=== PATIENT | male | born 1955 | race Caucasian/White ===

== ENCOUNTER 2024-05-15 08:07 | Day surgery (SDC) | payer MEDICARE, OTHER, SELFPAY ==
--- OUTSIDE RECORDS SUMMARY | 2024-05-08 14:07 | XMS_ITS | Patient Health Record ---
Author Organization [facility] Address [address] [place] [id number] Care Team Providers Care Mechanical Service Specialist Name Role Phone Baljit Paulson MD Primary Care Provider Alton Franco [phone] ALLERGIES Allergen (clinical drug ingredient) Drug/Non Drug Allergy documented on EMR Reaction Allergy Type Onset Date Status Sulfa Unknown Drug Allergy Active Penicillin Unknown Drug Allergy Active REASON FOR REFERRAL No Information MEDICATIONS Medication SIG (Take, Route, Frequency, Duration) Notes Start Date End Date Status Vitamin B Complex - as directed Orally Active Vitamin D 25 MCG (1000 UT) with calcium as directed Orally Once a day Active Ibuprofen 800 MG Oral for 90 A ctive clonazePAM 1 MG 1 tablet Oral QHS Active Simvastatin 40 MG TAKE 1 TABLET BY MARISABEL TH EVERY DAY IN THE EVENING Oral for 90 Active IMMUNIZATIONS Vaccine Route Administration Date Status Comme nts Influenza Unknown 01/23/2024 Refused Influenza Unknown 07/25/2018 Others SOCIAL HISTORY Sex Assigned At : Social History Observation Description Sex Assigned At Unknown PROBLEMS Problem Type ICD Code Onset Dates Problem Status W/U Status Risk SNOMED Code Notes Problem Encounter for screening for malignant neoplasm of colon (Z12.11) Active confirmed 134037064 Problem salvage determiner (current) use of non-steroidal anti-inflammator ies (NSAID) (Z79.1) Active confirmed salvage determiner curre nt use of non-steroidal anti-inflammatory drug (692208774747512) Problem Preprocedural examination (Z01.818) Active confirmed 977134200718529 Problem Hx of adenomatous colonic polyps (Z86.010) Active confirmed 668944815 VITAL SIGNS Blood pressure diastolic 00 mm Hg 01/23/2024 Height 72.5 in 01/23/2024 Blood pressure systolic 00 mm Hg 01/23/2024 Weight 286 lbs 01/23/2024 BMI 38.25 kg/m2 01/23/2024 Encounters Encounter Location Date Provider Diagnosis [facility] [address] [place] [address] 01/23/2024 Alton Garcia Hx of adenomatous colonic polyps Z86.010 ; alf (current) use of non-steroidal anti-inflammatories (NSAID) Z79.1 ; Encounter for screening for malignant neoplasm of colon Z12.11 and Preprocedural examination Z01.818 ASSESSMENTS Encounter Date Diagnosis Assessment Notes Treatment Notes Treatment Clinical Notes 01/23/2024 salvage determiner (current) use of non-steroidal anti-inflammatories (NSAID) (ICD-10 - Z79.1) 01/23/2024 Hx of adenomatous colonic polyps (ICD-10 - Z86.010) Stop your ibuprofen for one week before the colonoscopy 01/23/2024 Encounter for screening for malignant neoplasm of colon (ICD-10 - Z12.11) 01/23/2024 Preprocedural examination (ICD-10 - Z01.818) PLAN OF TREATMENT Future Test Test Name Order Date COLONOSCOPY 03/29/2013 COLONOSCOPY 07/25/2018 COLONOSCOPY 01/23/2024 Next Appt Details Provider Name:Alton Gregg Garcia , 05/15/2024 10:40:00 AM, [address] [place] [address] , [place], [place], [phone], Insurance Providers Payer Name Payer Address Payer Phone Subscriber Number Group Number Insured Name Patient Relationship to Insured Coverage Start Date Coverage End Date MEDICARE OF [place] [address] [place] [address] [id number] MIN MARTIN Self - patient is the insured [facility] [address] [place] [address] [id number] MIN MARTIN Self - patient is the insured MEDICAL (GENERAL) HISTORY Medical History History ICD Code Tubular adenoma removed in 2002 at [facility] Colonoscopy 01-27-2009--2 sm all tubular adenomas removed; colonoscopy in 04/2013 with only a hyperplastic polyp Denies RI,DM,CVArenal disease Cold-induced asthma Hyperlipidemia 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
--- OUTSIDE RECORDS SUMMARY | 2024-05-08 14:07 | XMS_ITS ---
Author Organization [facility] Address [address] [place] [address] Care Team Providers Care Business Case Analyst Name Role Phone Baljit Paulson MD Primary Care Provider Alton Franco Unavailable [phone] ALLERGIES Allergen (clinical drug ingredient) Drug/Non Drug Allergy documented on EMR Reaction Allergy Type Onset Date Status Sulfa Unknown Drug Allergy Active Penicillin Unknown Drug Allergy Active REASON FOR VISIT Patient presents today for a recall colonoscopy MEDICATIONS Medication SIG (Take, Route, Frequency, Duration) Notes Start Date End Date Status Vitamin B Complex - as directed Orally Active Ibuprofen 800 MG Oral for 90 A ctive clonazePAM 1 MG 1 tablet Oral QHS Active Simvastatin 40 MG TAKE 1 TABLET BY MARISABEL TH EVERY DAY IN THE EVENING Oral for 90 Active Vitamin D 25 MCG (1000 UT) with calcium as directed Orally Once a day Active IMMUNIZATIONS Vaccine Route Administration Date Status Comme nts Influenza Unknown 01/23/2024 Refused PROBLEMS Problem Type ICD Code Onset Dates Problem Status W/U Status Risk SNOMED Code Notes Problem intermediate (current) use of non-steroid al anti-inflam matories (NSAID) (Z79.1) Active confirmed exterminator helper termite current use of non-steroidal anti-inflamma tory drug ([id number]) VITAL SIGNS BMI 38.25 kg/m2 01/23/2024 Blood pressure systolic 00 mm Hg 01/23/20 24 Blood pressure diastolic 00 mm Hg 024 Height 72.5 in 01/23/2024 Weight 286 lbs 01/23/2024 Encounters Encounter Location Date Provider Diagnosis [facility] [address] [place] [address] 01/23/2024 Alton Garcia Hx of adenomatous colonic polyps Z86.010 ; intermediate (current) use of non-steroidal anti-inflammatories (NSAID) Z79.1 ; Encounter for screening for malignant neoplasm of colon Z12.11 and Preprocedural examination Z01.818 ASSESSMENTS Encounter Date Diagnosis Assessment Notes Treatment Notes Treatment Clinical Notes 01/23/2024 Hx of adenomatous colonic polyps (ICD-10 - Z86.010) Stop your ibuprofen for one week before the colonoscopy 01/23/2024 exterminator helper termite (current) use of non-steroidal anti-inflammatories (NSAID) (ICD-10 - Z79.1) 01/23/2024 Encounter for screening for malignant neoplasm of colon (ICD-10 - Z12.11) 01/23/2024 Preprocedural examination (ICD-10 - Z01.818) PLAN OF TREATMENT Treatment Notes Assessment Notes Hx of adenomatous colonic polyps Stop yo ur ibuprofen for one week before the colonoscopy Future Test Test Name Order Date COLONOSCOPY 01/23/2024 Next Appt Details Follow Up: prn, Reason: Provider Name:Alton Garcia , 05/15/2024 10:40:00 AM, [address] [place] [address] , [place], [place], [phone], Progress Notes * Examination Category Sub-Category Detail Notes General Examination GENERAL APPEARANCE: pleasant , well nourished, well developed, in no acute distress EYES: sclera non-icteric NECK/THYROID: no cervical lymphade nopathy, neck supple HEART: S1, S2 normal LUNGS: clear to auscultatio n bilaterally ABDOMEN: normal bowel sounds, no guarding or rigidity, no hepatosplenomegaly, no masses palpable, soft, nontender, nondistended. NEUROLOGIC: alert and oriented SKIN: nonjaundiced, no spi bakari angiomata. EXTREMITIES: no edema ORAL CAVITY: mucosa moist
[2024-05-13 14:42] VITALS: BMI 38.3
--- NOTE | 2024-05-14 08:44 | P.CONAN_ITS ---
Documented by User: Darlene Hart NP 05/14/24 08:44 HPI - Anesthesia Eval Consult details Narrative: 68yo M for Colonoscopy [facility] Past Medical History Medical History Guillain-Boston syndrome Hyperlipidemia Asthma Surgical History Surgical History Hx of knee surgery H/O colonoscopy Social History Social History Patient Tobacco Use Status: Never used Tobacco Use of substances other than those prescribed or required for medical reasons: No Are you DNR?: No Advance Directives: No Advance Directives Information Provided: Yes Meds Allergies Allergy/AdvReac Type Severity Reaction Status Date / Time Penicillins [PENICILLINS] Allergy Intermediate RASH Verified 05/15/24 09:13 Sulfa (Sulfonamide Allergy Intermediate RASH Verified 05/15/24 09:13 Antibiotics) [SULFA (SULFONAMIDE ANTIBIOTICS)] Home Medications ?Medication ?Instructions ?Recorded ?Confirmed ?Last Taken ?Type cholecalciferol (vitamin D3) 25 25 mcg PO DAILY 05/13/24 05/15/24 Unknown History mcg (1,000 unit) tablet (Vitamin D3) clonazepam 1 mg tablet 1 mg PO TID 05/13/24 05/15/24 Unknown History ibuprofen 800 mg tablet 800 mg PO Q8H PRN Pain 05/13/24 05/15/24 Unknown History simvastatin 40 mg tablet 40 mg PO QPM 05/13/24 05/15/24 Unknown History vitamin B complex 1 tab PO DAILY 05/13/24 05/15/24 Unknown History Exam Height,Weight and Vital Signs: Height 6 ft 0.5 in Weight 129.727 kg Assessment and Plan Assessment Anesthesia Assessment: Chart Reviewed Documented by User: Spring Phipps MD 05/15/24 10:01 [facility] Past Medical History Medical History Guillain-Boston syndrome Hyperlipidemia Asthma Family History Family history of problems with anesthesia: No Surgical History Surgical History Hx of knee surgery H/O colonoscopy History of Problems with Anesthesia: No Social History Social History Patient Tobacco Use Status: Never used Tobacco Use of substances other than those prescribed or required for medical reasons: No Are you DNR?: No Advance Directives: No Advance Directives Information Provided: Yes Meds Allergies Allergy/AdvReac Type Severity Reaction Status Date / Time Penicillins [PENICILLINS] Allergy Intermediate RASH Verified 05/15/24 09:13 Sulfa (Sulfonamide Allergy Intermediate RASH Verified 05/15/24 09:13 Antibiotics) [SULFA (SULFONAMIDE ANTIBIOTICS)] Home Medications ?Medication ?Instructions ?Recorded ?Confirmed ?Last Taken ?Type cholecalciferol (vitamin D3) 25 25 mcg PO DAILY 05/13/24 05/15/24 Unknown History mcg (1,000 unit) tablet (Vitamin D3) clonazepam 1 mg tablet 1 mg PO TID 05/13/24 05/15/24 Unknown History ibuprofen 800 mg tablet 800 mg PO Q8H PRN Pain 05/13/24 05/15/24 Unknown History simvastatin 40 mg tablet 40 mg PO QPM 05/13/24 05/15/24 Unknown History vitamin B complex 1 tab PO DAILY 05/13/24 05/15/24 Unknown History Exam Airway Mallampati Class: II TM Dist: >3cm Neck ROM: Full Heart: rrr Lungs: cta Assessment and Plan Assessment Anesthesia Assessment: Anesthesia Plan Discussed Final Anesthetic Review Family History of Problems with Anesthesia: No History of Problems with Anesthesia: No NPO: Yes ASA Class: II Final Preanesthetic Review: No Changes in Pt Med Stat, Meds/Allgs Chart Reviewed, Consent Obtained/Reviewed and Anes Risks/Benef Reviewed Patient Risk: Low Procedure Risk: Low Anesthetic Plan Anesthetic Plan: MAC: Disposition: Standard PACU
[2024-05-15 09:29] VITALS: BP 152/94; PULSE 70; RESP 16; TEMP 36.4; O2SAT 96; BMI 37.1
[2024-05-15] MEDS: Lactated Ringers 1,000 ML 100 ML IVCONT (09:40)
--- NOTE | 2024-05-15 11:07 | P.BOP_ITS ---
Brief Operative Note Date of Service: 05/15/24 Pre-op diagnosis: Screening Post-op diagnosis: other (Diverticulosis) Procedure: Colonoscopy to the cecum Surgeon: Alton Garcia MD Anesthesia: MAC Was an Joint Terminal Attack Controller used for this Procedure?: No Estimated blood loss (mL): 0 Pathology: none sent Condition: stable Disposition: PACU
[2024-05-15 11:08] VITALS: BP 123/76; PULSE 66; RESP 16; TEMP 36.1; O2SAT 97
--- NOTE | 2024-05-15 11:22 | OP_ITS ---
DATE OF SERVICE: 05/15/2024 SURGEON: Alton Garcia MD INDICATIONS: The patient presents for evaluation of colorectal cancer screening and personal history of tubular adenoma of the colon. Full consent has been obtained from him for this, including risks of bleeding and perforation. PREOPERATIVE DIAGNOSIS: POSTOPERATIVE DIAGNOSIS: PROCEDURE PERFORMED: Colonoscopy to the cecum. ESTIMATED BLOOD LOSS: COMPLICATIONS: ANESTHESIA: Monitored anesthesia care. ASSISTANTS: SPECIMENS: PREOPERATIVE DIAGNOSES: Colorectal cancer screening and personal history of tubular adenoma of the colon. POSTOPERATIVE DIAGNOSES: Colorectal cancer screening, personal history of tubular adenoma of the colon, diverticulosis, and internal hemorrhoids. DESCRIPTION OF PROCEDURE: The patient was placed in the left lateral decubitus position. The digital rectal exam revealed no abnormalities. The Olympus video colonoscope was then entered into the rectum and advanced to the cecum. Advancement to the cecum was somewhat difficult. Once in the cecum, I did identify cecal pouch with appendiceal orifice and a normal-appearing ileocecal valve. The scope was then slowly withdrawn assessing all mucosal surfaces carefully. Preparation was excellent. I did not visualize any sign of polyps, colitis, nor angiodysplasias. There was a mild amount of sigmoid diverticulosis. In the rectum, scope was retroflexed, visualizing internal hemorrhoids, but no other pathology. The rectal mucosa appeared normal. The scope was straightened and withdrawn from the patient. He tolerated the procedure well and was returned to the recovery area in stable condition. IMPRESSION: 1. Diverticulosis. 2. Internal hemorrhoids. PLAN: Given his previous history, I would recommend a followup colonoscopy in 5 years for further screening and surveillance. He will, otherwise, see me on a p.r.n. basis. Alton Garcia MD RMW/KENDALLL / [phone]
[2024-05-15 11:26] VITALS: BP 147/99; PULSE 65; RESP 18; TEMP 36.2; O2SAT 97
== END 2024-05-15 11:44 | disposition home or self-care (01) ==
PROVIDERS: PCP Internal Medicine; Visit Provider Internal Medicine
PROC: 0DJD8ZZ Inspection of Lower Intestinal Tract, Via Natural or Artificial Opening Endoscopic (ICD-10-PCS; CPT 45378; principal; 2024-05-15 09:30)
DX: Z12.11 Encounter for screening for malignant neoplasm of colon (principal); Z86.0101 Personal history of adenomatous and serrated colon polyps; K57.30 Diverticulosis of large intestine without perforation or abscess without bleeding; K64.8 Other hemorrhoids; J45.998 Other asthma; E78.5 Hyperlipidemia, unspecified; G61.0 Guillain-Barre syndrome; Z79.1 Long term (current) use of non-steroidal anti-inflammatories (NSAID); Z79.899 Other long term (current) drug therapy
CPT/HCPCS: G0105; J2704